=== PATIENT | female | born 1975 | race African-American/Black ===

== ENCOUNTER 2016-06-11 20:09 | Emergency (ER) | payer OTHER ==
[~2016-06-11] VITALS: Ht 172.7 cm; Wt 149.7 kg
[~2016-06-11 20:09] MED LIST: ACET-704 PO; AMLO2.5T2 PO; CYCL10TA2 PO; FLUC150T PO; HYDR-971 PO; LISI1TAB5 PO; SULF1TAB24 PO
[2016-06-11 21:41] VITALS: BP 118/81
[2016-06-11] MEDS ORDERED: FENTANYL PF 100 MCG/2 ML VIAL. IV ONE (22:15)
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
[2016-06-11 22:30] LABS: BASO % 0 % (0-3); EOS % 0 % (0-3); HEMATOCRIT 39.1 % (36.0-47.0); HEMOGLOBIN 12.5 g/dL (12.0-15.5); LYMPH # 0.8 x10^3/uL (1.0-4.8); LYMPH % 7 % (24-48); MEAN CORPUSCULAR HEMOGLOBIN 26 pg (25-35); MEAN CORPUSCULAR HGB CONC 32 g/dL (31-37); MEAN CORPUSCULAR VOLUME 81 fL (79-100); MONO % 7 % (0-9); NEUT % 86 % (31-73); PLATELET COUNT 383 x10^3/uL (140-400); RED BLOOD COUNT 4.81 x10^6/uL (3.50-5.40); RED CELL DISTRIBUTION WIDTH 14.4 % (11.5-14.5); WHITE BLOOD COUNT 11.3 x10^3/uL (4.0-11.0)
[2016-06-11] MEDS ORDERED: CONTRAST GIVEN MC PRN (22:30)
[2016-06-11] MEDS ORDERED: IOHEXOL 300 MG/ML 100ML VIAL. IV ONE (22:30)
[2016-06-11 22:42] LABS: CALCIUM 8.7 mg/dL (8.5-10.1); GFR 73.2; POTASSIUM 3.8 mmol/L (3.5-5.1)
[2016-06-11 22:48] LABS: ALBUMIN 3.4 g/dL (3.4-5.0); ALBUMIN/GLOBULIN RATIO 0.8 (1.0-1.7); TOTAL BILIRUBIN 0.7 mg/dL (0.2-1.0); TOTAL PROTEIN 7.9 g/dL (6.4-8.2)
[2016-06-11] MEDS ORDERED: ONDANSETRON PF 4 MG/2 ML VIAL. IV ONE (23:00)
[2016-06-11] MEDS ORDERED: HYDROCODONE/APAP 5/325MG TABLET. PO ONE (23:00)
[2016-06-11 23:16] LABS: PLT ESTIMATE ADEQUATE (ADEQUATE)
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
[2016-06-11 23:43] LABS: NEG OBC UR NEG; POS OBC UR POS
[2016-06-11 23:45] LABS: BILIRUBIN,URINE NEGATIVE (NEG); GLUCOSE,URINE NEGATIVE (NEG); NITRITE,URINE NEGATIVE (NEG); PROTEIN,URINE NEGATIVE (NEG-TRACE)
[2016-06-11 23:53] LABS: BACTERIA,URINE FEW /HPF (0-FEW); RBC,URINE 0 /HPF (0-2); SQUAMOUS EPITHELIAL CELL,UR FEW /LPF
[2016-06-12] MEDS ORDERED: HYDR-971 PO
[2016-06-12] MEDS ORDERED: NITR100C62 PO (00:06)
[2016-06-12] MEDS ORDERED: ONDA4TAB7 PO (00:08)
[2016-06-12] MEDS ORDERED: FLUC150T PO (00:11)
== END 2016-06-12 00:15 | disposition home or self-care (01) ==
LOC: ER 20:09
DX: N39.0 Urinary tract infection, site not specified (principal); I10 Essential (primary) hypertension; Z98.51 Tubal ligation status; Z91.018 Allergy to other foods
CPT/HCPCS: 36415; 74177; 80053; 81001; 81025; 83690; 85007; 85027; 87086; 96374; 99285; J2405; Q9967

== ENCOUNTER 2016-07-05 01:10 | Emergency (ER) | payer OTHER ==
[~2016-07-05] VITALS: Ht 172.7 cm; Wt 149.7 kg
[~2016-07-05 01:10] MED LIST changes: +NITR100C62 PO; +ONDA4TAB7 PO
[2016-07-05] MEDS ORDERED: NAPROXEN 250 MG TABLET PO ONE (02:00)
[2016-07-05] MEDS ORDERED: CYCLOBENZAPRINE 10 MG TABLET. PO ONE (02:00)
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
[2016-07-05 03:33] VITALS: BP 124/70
[2016-07-05] MEDS ORDERED: NAPR250T2 PO (03:45)
[2016-07-05] MEDS ORDERED: CYCL10TA2 PO (03:45)
--- NOTE | 2016-07-05 06:35 | EKG ---
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
--- NOTE | 2016-07-05 07:20 | RAD ---
Indication: Chest pain. Time of exam 0247 hours. FINDINGS: The heart size is normal. The lungs are clear. No pleural effusion or pneumothorax is identified. The pulmonary vascularity is normal. IMPRESSION: No acute abnormality detected.
== END 2016-07-05 03:50 | disposition home or self-care (01) ==
LOC: ER 01:10
DX: R07.1 Chest pain on breathing (principal); M54.2 Cervicalgia; I10 Essential (primary) hypertension; Z98.51 Tubal ligation status; Z91.018 Allergy to other foods; Z98.84 Bariatric surgery status
CPT/HCPCS: 71020; 93005; 99284-25

== ENCOUNTER 2016-09-04 18:23 | Emergency (ER) | payer BC, OTHER ==
[~2016-09-04 18:23] MED LIST changes: +NAPR250T2 PO
[2016-09-04 18:38] VITALS: BP 152/89
[2016-09-04] MEDS ORDERED: CYCL10TA2 PO (18:55)
[2016-09-04] MEDS ORDERED: NAPR550T PO (18:55)
[2016-09-04] MEDS ORDERED: CETI10TA22 PO (18:55)
--- NOTE | 2016-09-04 18:55 | PHYS DOC ---
Past Medical History Past Medical History: Hypertension Past Surgical History: Tubal ligation, Other Additional Past Surgical Histo: Lap band, LAP BAND REMOVAL, Breast reduction Alcohol Use: None Drug Use: None Adult General Chief Complaint Chief Complaint: Neck Pain [facility] HPI Patient is a 41 year old female that presents emergency room with 2 complaints : 1. 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 2. Atraumatic left-sided neck pain this been ongoing for 3-4 weeks. Patient denies any changes to sleeping surfaces. She denies any history of spinal cord or spinal column injuries. She denies any known history of neuromuscular disorders at this time. Overall, patient denies fevers, chills, unexplained loss of weight. She denies antibiotic use within the past 30 days. She denies any focal weakness or alteration in sensation. Review of Systems Review of Systems Constitutional: Denies fever or chills [] Eyes: Denies change in visual acuity, redness, or eye pain [] HENT: Denies nasal congestion or sore throat [] Respiratory: Denies cough or shortness of breath [] Cardiovascular: No additional information not addressed in HPI [] GI: Denies abdominal pain, nausea, vomiting, bloody stools or diarrhea [] : Denies dysuria or hematuria [] Musculoskeletal: Denies back pain or joint pain [] Integument: Denies rash or skin lesions [] Neurologic: Denies headache, focal weakness or sensory changes [] Endocrine: Denies polyuria or polydipsia [] Allergies Allergies Allergies Coded Allergies Type Severity Reaction Last Updated Verified corey flavor Allergy Intermediate MANGOS-HIVES 06/01/16 Yes Physical Exam Physical Exam Constitutional: Well developed, well nourished, no acute distress, non-toxic appearance. HENT: Normocephalic, atraumatic, bilateral external ears normal, oropharynx moist, no oral exudates, boggy, pale nasal mucosa with clear rhinorrhea. drainage in the posterior oropharynx is clear. Eyes: PERRLA, EOMI, conjunctiva normal, no discharge. [] Neck: Normal range of motion, supple, no stridor. Neck is normal in appearance. There is no stridor. There is tenderness to palpation of the left sternocleidomastoid muscle without palpable defect, deformity or spasm. Patient complains of increased pain with looking over her right shoulder. There is no midline tenderness. Brudzinski's is negative. Cardiovascular:Heart rate regular rhythm, no murmur [] Lungs & Thorax: There is no respiratory distress respiratory fatigue. There is no posturing or sensory muscle use. Lungs are clear to auscultation bilaterally. Abdomen: Bowel sounds normal, soft, no tenderness, no masses, no pulsatile masses. [] Skin: Warm, dry, no erythema, no rash. [] Back: No tenderness, no CVA tenderness. [] Extremities: No tenderness, no cyanosis, no clubbing, ROM intact, no edema. [] Neurologic: Alert and oriented X 3, normal motor function, normal sensory function, no focal deficits noted. [] Psychologic: Affect normal, judgement normal, mood normal. [] Current Patient Data Vital Signs Vital Signs Date Time Temp Pulse Resp B/P Pulse Ox O2 Delivery O2 Flow Rate FiO2 09/04/16 18:38 98.5 80 16 97 Room Air 98.5 EKG EKG [] Radiology/Procedures Radiology/Procedures [] Course & Med Decision Making Course & Med Decision Making Pertinent Labs and Imaging studies reviewed. (See chart for details) [] Dragon Disclaimer Dragon Disclaimer This electronic medical record was generated, in whole or in part, using a voice recognition dictation system. Departure Departure Impression: Primary Impression: Neck pain Additional Impression: Allergic rhinitis Disposition: 01 HOME, SELF-CARE Condition: GOOD Referrals: NO PCP (PCP) Patient Instructions: Allergic Rhinitis, Musculoskeletal Pain Additional Instructions: 1. Take the medication as prescribed. You can also take an stxy-qks-cziavec decongestant such as Mucinex D. 2. Review the discharge instructions provided for self-care and reasons to return to the emergency department. 3. Use the pamphlet provided for assistance in finding a primary care doctor to address her concerns. Scripts Cyclobenzaprine Hcl 10 Mg Tablet1 Tab PO TID #21 TAB Prov:YOMI HERNANDEZ 09/04/16 Naproxen Sodium (Anaprox Ds)550 Mg Tablet1 Tab PO PRN Q12HRS #30 TAB Prov:YOMI HERNANDEZ 09/04/16 Cetirizine Hcl (Zyrtec)10 Mg Tablet1 Tab PO DAILY #30 TAB Ref 2 Prov:YOMI HERNANDEZ 3/28/17 Problem Qualifiers YOMI HERNANDEZ Sep 04, 2016 18:55
== END 2016-09-04 19:00 | disposition home or self-care (01) ==
LOC: ER 18:23
DX: M54.2 Cervicalgia (principal); J30.9 Allergic rhinitis, unspecified; M25.511 Pain in right shoulder; I10 Essential (primary) hypertension; Z91.02 Food additives allergy status
CPT/HCPCS: 99283

== ENCOUNTER 2016-10-19 18:43 | Emergency (ER) | payer SELFPAY ==
[~2016-10-19] VITALS: Ht 175.3 cm; Wt 151.5 kg
[~2016-10-19 18:43] MED LIST changes: +CETI10TA22 PO; +NAPR550T PO
[2016-10-19] MEDS ORDERED: NAPROXEN 500 MG TABLET PO STA (19:05)
[2016-10-19] MEDS ORDERED: CYCLOBENZAPRINE 10 MG TABLET. PO ONE (19:15)
[2016-10-19] MEDS ORDERED: HYDROcodone/APAP 5/325MG 1 TAB TABLET PO ONE (19:15)
--- NOTE | 2016-10-19 19:47 | PHYS DOC ---
Past Medical History Past Medical History: Hypertension Past Surgical History: Other Additional Past Surgical Histo: BREAST REDUCTION, LAP BAND REMOVAL Alcohol Use: None Drug Use: None Adult General Chief Complaint Chief Complaint: MECHANICAL FALL HPI HPI Patient is a 41 year old female with history of hypertension who presents today with moderate right forearm, right lateral hand pain, right hip pain that began today after she fell in [employer]. Patient states the floor was wet. Review of Systems Review of Systems Constitutional: Denies fever or chills [] Eyes: Denies change in visual acuity, redness, or eye pain [] HENT: Denies nasal congestion or sore throat [] Respiratory: Denies cough or shortness of breath [] Cardiovascular: No additional information not addressed in HPI [] GI: Denies abdominal pain, nausea, vomiting, bloody stools or diarrhea [] : Denies dysuria or hematuria [] Musculoskeletal: Denies back pain or joint pain [] Integument: Denies rash or skin lesions [] Neurologic: Denies headache, focal weakness or sensory changes [] Endocrine: Denies polyuria or polydipsia [] Current Medications Current Medications Current Medications Medications (Trade) Dose Ordered Sig/Victorino Start Time Stop Time Status Last Admin Dose Admin Acetaminophen/ Hydrocodone Bitart (Lortab 5/325) 2 tab 1X ONCE 10/19/16 19:15 10/19/16 19:16 DC 10/19/16 19:21 2 TAB Cyclobenzaprine HCl (Flexeril) 10 mg 1X ONCE 10/19/16 19:15 10/19/16 19:16 DC 10/19/16 19:20 10 MG Naproxen (Naprosyn) 500 mg 1X STAT 10/19/16 19:05 10/19/16 19:09 DC 10/19/16 19:20 500 MG Allergies Allergies Allergies Coded Allergies Type Severity Reaction Last Updated Verified corey flavor Allergy Intermediate MANGOS-HIVES 06/01/16 Yes Physical Exam Physical Exam Constitutional: Well developed, well nourished, no acute distress, non-toxic appearance. [] HENT: Normocephalic, atraumatic, bilateral external ears normal, oropharynx moist, no oral exudates, nose normal. [] Eyes: PERRLA, EOMI, conjunctiva normal, no discharge. [] Neck: Normal range of motion, no tenderness, supple, no stridor. [] Cardiovascular:Heart rate regular rhythm, no murmur [] Lungs & Thorax: Bilateral breath sounds clear to auscultation [] Abdomen: Bowel sounds normal, soft, no tenderness, no masses, no pulsatile masses. [] Skin: Warm, dry, no erythema, no rash. [] Back: No tenderness, no CVA tenderness. [] Extremities: Overweight patient. Right forearm and right hand with no obvious deformity. Tenderness diffusely on palpation of the right distal forearm lateral aspect as well as the right lateral hand. Full range of motion especially passive range of motion to the right forearm and hand. Adequate plantar flexion and doses flexion of the right forearm. Adequate flexion and extension of the right hand. No scaphoid pain or tenderness. Adequate ulnar medial and radial sensation to the right forearm. +2 right radial pulse. Cap refill less than 2 seconds the right upper extremity. Sensation intact to the right upper extremity. Neurologic: Alert and oriented X 3, normal motor function, normal sensory function, no focal deficits noted. [] Psychologic: Affect normal, judgement normal, mood normal. [] Current Patient Data Vital Signs Vital Signs Date Time Temp Pulse Resp B/P (MAP) Pulse Ox O2 Delivery O2 Flow Rate FiO2 10/19/16 19:21 18 96 Room Air 10/19/16 18:43 98.5 73 98.5 EKG EKG [] Radiology/Procedures Radiology/Procedures [] Course & Med Decision Making Course & Med Decision Making Pertinent Labs and Imaging studies reviewed. (See chart for details) Patient is in the ED with right forearm pain, right hand pain, and right hip pain after falling at [employer]. The floor was wet. Right hip with pelvic, right forearm and right hand x-rays interpreted by Dr. Sanchez and negative for any acute findings. Patient was discharged with naproxen and Flexeril. Follow- up with orthopedic doctor which we provided in one week if pain continues. Ice elevation encouraged of the affected extremities. Dragon Disclaimer Dragon Disclaimer This electronic medical record was generated, in whole or in part, using a voice recognition dictation system. Departure Departure Impression: Primary Impression: Fall from standing Additional Impressions: Contusion of right hip Contusion of right forearm Sprain of right hand Disposition: 01 HOME, SELF-CARE Condition: STABLE Referrals: NO PCP (PCP) PRINCE,CHRIS R MD Follow-up with orthopedic doctor in one week if pain continues Patient Instructions: Contusion, Fall Prevention and Home Safety, Joint Sprain Additional Instructions: You were seen for right hip contusion, right hand sprain, right forearm contusion after falling. Ice and elevate the affected extremities. Take the prescribed medicines as needed for pain. Follow-up with the provided orthopedic doctor or your own doctor in 1-2 weeks if pain continues. Scripts Cyclobenzaprine Hcl (CYCLOBENZAPRINE HCL) 10 Mg Tablet 1 TAB PO TID, #30 TAB Prov: KWADWO JULES APRN 10/19/16 Naproxen (NAPROXEN) 500 Mg Tablet.dr 1 TAB PO BID, #60 TAB 2 Refills Prov: KWADWO JULES APRN 10/19/16 Problem Qualifiers Primary Impression: Fall from standing Encounter type: initial encounter Qualified Codes: W19.XXXA - Unspecified fall, initial encounter Additional Impressions: Contusion of right hip Encounter type: initial encounter Qualified Codes: S70.01XA - Contusion of right hip, initial encounter Contusion of right forearm Encounter type: initial encounter Qualified Codes: S50.11XA - Contusion of right forearm, initial encounter Sprain of right hand Encounter type: initial encounter Qualified Codes: S63.91XA - Sprain of unspecified part of right wrist and hand, initial encounter KWADWO JULES APRN October 19, 2016 19:47
[2016-10-19] MEDS ORDERED: CYCL10TA2 PO (20:01)
[2016-10-19] MEDS ORDERED: NAPR500T8 PO (20:01)
[2016-10-19 20:45] VITALS: BP 135/71
--- NOTE | 2016-10-20 09:07 | RAD ---
Examination: 3 views of the left ankle History: History of left ankle pain Comparison: None available Findings: The ankle mortise appears intact. There is no acute fracture or dislocation identified. Impression : No acute osseous findings.
--- NOTE | 2016-10-20 09:17 | RAD ---
Examination: 3 views of the right hand and 2 views of the right forearm History: History of fall, pain. Comparison: None available. Findings: The alignment of the carpometacarpal joints, metacarpophalangeal joints, interphalangeal joints grossly appears unremarkable. There is no obvious acute fracture or dislocation identified. The alignment of the radius, ulna grossly appears unremarkable. Impression: No acute osseous findings
--- NOTE | 2016-10-20 09:19 | RAD ---
Examination: 2 views of the right hip and frontal view the pelvis History: History of fall, pain Comparison: None available Findings: The right femoral head is within the acetabulum. There is no acute fracture or dislocation identified. Impression: No acute osseous findings
== END 2016-10-19 21:39 | disposition home or self-care (01) ==
LOC: ER 18:43
DX: S63.91XA Sprain of unspecified part of right wrist and hand, initial encounter (principal); S70.01XA Contusion of right hip, initial encounter; S50.11XA Contusion of right forearm, initial encounter; I10 Essential (primary) hypertension; Z91.018 Allergy to other foods; W19.XXXA Unspecified fall, initial encounter; Y93.89 Activity, other specified; Y92.89 Other specified places as the place of occurrence of the external cause; Y99.8 Other external cause status
CPT/HCPCS: 73090; 73130; 73502; 73610; 99284-25

== ENCOUNTER 2017-06-27 01:46 | Emergency (ER) | payer OTHER ==
[2017-06-27 02:45] LABS: ADD MAN DIFF? NO
[2017-06-27 02:47] LABS: BASO % 0 % (0-3); EOS # 0.2 x10^3/uL (0.0-0.7); EOS % 2 % (0-3); HEMATOCRIT 36.6 % (36.0-47.0); HEMOGLOBIN 11.9 g/dL (12.0-15.5); LYMPH # 3.3 x10^3/uL (1.0-4.8); LYMPH % 36 % (24-48); MEAN CORPUSCULAR HEMOGLOBIN 27 pg (25-35); MEAN CORPUSCULAR HGB CONC 33 g/dL (31-37); MEAN CORPUSCULAR VOLUME 84 fL (79-100); MONO # 0.8 x10^3/uL (0.0-1.1); MONO % 9 % (0-9); NEUT # 4.9 x10^3uL (1.8-7.7); NEUT % 53 % (31-73); PLATELET COUNT 396 x10^3/uL (140-400); RED BLOOD COUNT 4.36 x10^6/uL (3.50-5.40); RED CELL DISTRIBUTION WIDTH 14.4 % (11.5-14.5); WHITE BLOOD COUNT 9.3 x10^3/uL (4.0-11.0)
[2017-06-27 03:12] LABS: ANION GAP 9 (6-14); BLOOD UREA NITROGEN 19 mg/dL (7-20); BUN/CREATININE RATIO 19 (6-20); CALCIUM 8.7 mg/dL (8.5-10.1); CARBON DIOXIDE 28 mmol/L (21-32); CHLORIDE 104 mmol/L (98-107); GFR 72.9; GLUCOSE 102 mg/dL (70-99); POTASSIUM 4.1 mmol/L (3.5-5.1); SODIUM 141 mmol/L (136-145)
[2017-06-27 03:17] LABS: ALBUMIN/GLOBULIN RATIO 0.7 (1.0-1.7); ALK PHOS 123 U/L (46-116); ALT (SGPT) 17 U/L (14-59); AST (SGOT) 25 U/L (15-37); TOTAL BILIRUBIN 0.4 mg/dL (0.2-1.0); TOTAL PROTEIN 7.3 g/dL (6.4-8.2)
[2017-06-27 03:20] LABS: TROPONINI < 0.017 ng/mL (0.000-0.055)
[2017-06-27] MEDS: KETOROLAC 15 MG/ML VIAL. IV (03:33)
== END 2017-06-27 05:08 | disposition home or self-care (01) ==
LOC: ER 01:46
DX: S29.012A Strain of muscle and tendon of back wall of thorax, initial encounter (principal); R07.89 Other chest pain; I10 Essential (primary) hypertension; Z91.02 Food additives allergy status; X58.XXXA Exposure to other specified factors, initial encounter; Y93.89 Activity, other specified; Y92.89 Other specified places as the place of occurrence of the external cause; Y99.8 Other external cause status
CPT/HCPCS: 36415; 71045; 80053; 84484; 85025; 93005; 96374; 99285-25; J1885

== ENCOUNTER 2019-03-26 00:21 | Emergency (ER) | payer OTHER ==
[~2019-03-26] VITALS: Ht 175.3 cm; Wt 142.4 kg
[~2019-03-26 00:21] MED LIST changes: +HYDR-3164 PO; -HYDR-971 PO; +LISI1TAB19 PO; -LISI1TAB5 PO; +NAPR-682 PO; -NAPR250T2 PO; +NAPR250T6 PO; +NAPR500T8 PO; -NAPR550T PO
[2019-03-26 00:25] VITALS: BP 165/100
[2019-03-26] MEDS ORDERED: MOME17SP NS (00:43)
--- NOTE | 2019-03-26 00:43 | PHYS DOC ---
Past Medical History Past Medical History: Hypertension, Other Additional Past Medical Histor: INCREASED PITUATARY GLAND LEVELS Past Surgical History: Other Additional Past Surgical Histo: BREAST REDUCTION, LAP BAND REMOVAL Alcohol Use: None Drug Use: None Adult General Chief Complaint Chief Complaint: SORE THROAT HPI HPI 44-year-old female presents to the emergency department with complaints of sore throat, congestion �3 days. Patient denies any fever, nausea, vomiting, chest pain, shortness of breath. Nothing makes her symptoms worse, nothing makes her symptoms better. All other ROS negative unless documented in HPI Review of Systems Review of Systems See Above Allergies Allergies Allergies Coded Allergies Type Severity Reaction Last Updated Verified corey flavor Allergy Intermediate MANGOS-HIVES 06/01/16 Yes Physical Exam Physical Exam See Above Constitutional: Well developed, well nourished, no acute distress, non-toxic appearance. [] HENT: Normocephalic, atraumatic, bilateral external ears normal, oropharynx moist - red without exudate, no oral exudates, nose normal. [] Eyes: PERRLA, EOMI, conjunctiva normal, no discharge. [] Neck: Normal range of motion, no tenderness, supple, no stridor. [] Cardiovascular:Heart rate regular rhythm, no murmur [] Lungs & Thorax: Bilateral breath sounds clear to auscultation [] Abdomen: Bowel sounds normal, soft, no tenderness, no masses, no pulsatile masses. [] Skin: Warm, dry, no erythema, no rash. [] Neurologic: Alert and oriented X 3, no focal deficits noted. [] Psychologic: Affect normal, judgement normal, mood normal. [] EKG EKG [] Radiology/Procedures Radiology/Procedures [] Course & Med Decision Making Course & Med Decision Making Pertinent Labs and Imaging studies reviewed. (See chart for details) []44-year-old female presents to the emergency department with complaints of sore throat, congestion �3 days. Patient denies any fever, nausea, vomiting, chest pain, shortness of breath. Nothing makes her symptoms worse, nothing makes her symptoms better. Dragon Disclaimer Dragon Disclaimer This electronic medical record was generated, in whole or in part, using a voice recognition dictation system. Departure Departure Impression: Primary Impression: Sore throat (viral) Additional Impression: Post-nasal drip Disposition: 01 HOME, SELF-CARE Referrals: NO PCP (PCP) Patient Instructions: Sore Throat, [id number] Additional Instructions: Recommend follow up with PCP 3 - 5 days Return to the ER with worsening symptoms, intractable pain, fever, altered mental status Tylenol/Motrin as needed for pain Nasonex as directed No abx at this time, no evidence of acute bacterial infection appreciated Scripts Mometasone Furoate (NASONEX) 17 Gm Trion.pump 2 SPRAY NS DAILY, #1 INHALER 5 Refills Prov: GRACIE BLAIR MD 03/26/19 Problem Qualifiers GRACIE BLAIR MD Mar 26, 2019 00:43
== END 2019-03-26 00:30 | disposition home or self-care (01) ==
LOC: ER 00:21
DX: J02.8 Acute pharyngitis due to other specified organisms (principal); B97.89 Other viral agents as the cause of diseases classified elsewhere; R09.82 Postnasal drip; I10 Essential (primary) hypertension; Z91.02 Food additives allergy status
CPT/HCPCS: 99283

== ENCOUNTER 2019-04-06 17:52 | Emergency (ER) | payer OTHER ==
[~2019-04-06] VITALS: Ht 172.7 cm; Wt 144.7 kg
[~2019-04-06 17:52] MED LIST changes: +MOME17SP NS
[2019-04-06] MEDS ORDERED: HYDROcodone/APAP 5/325MG 1 TAB TABLET PO ONE (19:00)
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
== END 2019-04-06 21:33 | disposition home or self-care (01) ==
LOC: ER 17:52
DX: S16.1XXA Strain of muscle, fascia and tendon at neck level, initial encounter (principal); M54.5 Low back pain; M54.6 Pain in thoracic spine; R10.2 Pelvic and perineal pain; R51 Headache; I10 Essential (primary) hypertension; Z91.02 Food additives allergy status; V43.52XA Car driver injured in collision with other type car in traffic accident, initial encounter; Y93.89 Activity, other specified; Y92.410 Unspecified street and highway as the place of occurrence of the external cause; Y99.8 Other external cause status
CPT/HCPCS: 70450; 72125; 72128; 72131; 72170; 72192; 81025; 99284